=== PATIENT | male | born 1960 | race Caucasian/White ===

== ENCOUNTER 2024-06-29 12:31 | Outpatient (CLI) | payer OTHER, SELFPAY ==
[2024-06-29 13:11] LABS: Phenytoin Dilantin 5 ug/mL (10-20)
== END 2024-06-29 12:32 | disposition home or self-care (01) ==
PROVIDERS: Visit Provider Psychiatry & Neurology Neurology
DX: G40.909 Epilepsy, unspecified, not intractable, without status epilepticus (principal)
CPT/HCPCS: 36415; 80185

== ENCOUNTER 2025-03-28 13:31 | Outpatient (CLI) | payer OTHER, SELFPAY ==
--- OUTSIDE RECORDS SUMMARY | 2025-03-28 14:01 | XMS_ITS | Clinical Summary ---
Author Organization [facility] Address [address] [place] [address] Care Team Providers Care Glass Tube Bender Name Role Phone Drake RANDOLPH MD, Aric Morse Primary Care Provider Cirilo VALLE MD, Aric Morse Unavailable [phone] Source Comments [facility],non-owned Affiliates and Associated Physician Practices is amultiple site organization consisting of ambulatory clinics and hospital sitesin [place], [place], [place] and [place]. This disclosure is being madepursuant to the Care Everywhere program and may not contain all information available regarding this patient. Last updated 18.[facility] Allergies Active Allergy Reactions Criticality Noted Date Comments Cortisone Anaphylaxis High Reaction: Other Hydrocortisone Other Low 01/26/2016 Extremely drowsy Levofloxacin Unknown 01/11/2019 Medications * Be aware that medications may not be up to date on this document. Alwaysverify current medications with the patient. topiramate (TOPAMAX) 100 MG tablet Take 100 mg by mouth BID. 60 tablet 2 7 Active Additional Information Patient not taking.Reported on 04/14/2019 primidone (MYSOLINE) 50 MG tablet Take 50 mg by mouth BID. 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 Gender Identity Not on file Sexual Orientation Not on file Last Filed Vital Signs Vital Sign Reading Time Taken Comments Blood Pressure 184/94 04/14/2019 2:19 PM CDT Pulse 57 04/14/2019 2:19 PM CDT Temperature 36.1 C (96.9 F) 01/26/2016 10:17 AM CDT Respiratory Rate - - Oxygen Saturation 95% 04/14/2019 2:19 PM CDT Inhaled Oxygen Concentration - - Weight 168.3 kg (371 lb) 04/14/2019 2:19 PM CDT Height 172.7 cm (5' 8) 04/14/2019 2:19 PM CDT Body Mass Index 56.41 04/14/2019 2:19 PM CDT Plan of Treatment Health Maintenance Due Date Last Done Comments COLOGUARD (AGES 45-75) - COLON CA SCREENING 1958 COLON MONITORING 1958 COLONOSCOPY - COLON CA SCREENING 1958 CT COLONOGRAPHY - COLON CA SCREENING 1958 Colorectal Cancer Screening 1958 FIT - COLON CA SCREENING 1958 FLEX SIG - COLON CA SCREENING 1958 DTAP/TDAP/TD VACCINES (1 - Tdap) 1977 PNEUMOCOCCAL VACCINE 50+ (1 of 1 - PCV) 2008 ZOSTER VACCINE (1 of 2) 2008 Respiratory Syncytial Virus (RSV) Vaccine Pt: or over 60 yrs (1 - Risk 60-74 years 1-dose series) 2018 COVID-19 VACCINE (1 - 2023- season) 2024 DEPRESSION SCREENING 09/29/2024 INFLUENZA VACCINE (Season Ended) 2025 SCREENING FOR DIABETES 08/15/2026 , 08/15/2023, 08/15/2023, Additional history exists LIPID TESTING 08/15/2028 08/15/2023, 10/23/2021 HEPATITIS C SCREENING Completed 10/23/2021 HEPATITIS B VACCINE Aged Out No longe r eligible based on patient's age to complete this topic HIB VACCINE Aged Out No longer eligi ble based on patient's age to complete this topic HPV VACCINE Aged Out No longer eligi ble based on patient's age to complete this topic MENINGOCOCCAL (Group B) VACCINE SHARED DECISION-MAKING Aged Out No longer eligible based on patient's age to complete this topic MENINGOCOCCAL GROUPS A/C/Y/W VACCINE Aged Out No longer eligible based on patient's age to complete this topic Insurance [employer] Care Teams Glass Tube Bender Relationship Specialty Start Date End Date Aric Juan III, MD [address] [address] PCP - General 12/28/18 Aric Kerr II, MD [address] [place] [id number] PCP - Attributed-[facility] 09/29/24
--- OUTSIDE RECORDS SUMMARY | 2025-03-28 14:01 | XMS_ITS | Encounter Summary ---
Author Organization [facility] Healthcare Address [address] [place] [address] Care Team Providers Care Supervisor Assembly And Packing Name Role Phone Aric Juan MD Unavailable [phone] Aric Juan MD Primary Care Provider [phone] Encounter Details Date Type Department Care Team (Latest Contact Info) Description 01/01/2021 Ophth Exam Ophthalmology Arianne Millard MD PhD [address] [place] [address] Social History Tobacco Use Types Packs/Day Years Used Date Smoking Tobacco: Former Cigarettes Q uit: 01/12/1972 Smokeless Tobacco: Never Alcohol Use Standard Drinks/Week Comments Yes 0 (1 standard drink = 0.6 oz pur e alcohol) very occasionally AUDIT-C Answer Date Recorded Q1: How often do you have a drink containing alc ohol? Monthly or less 01/04/2021 Q2: How many drinks containi ng alcohol do you have on a typical day when you are drinking? 1 or 2 01/04/2021 Q3: How often do you have si x or more drinks on one occasion? 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 Gender Identity Not on file Sexual Orientation Not on file documented as of this encounter Functional Status documented as of this encounter Plan of Treatment Not on file documented as of this encounter Visit Diagnoses Not on filedocumented in this encounter Eye Exam Visual Acuity Right eye Left eye Near sc LP Near cc 20/20-2 Correction: Glasses Tonometry (Tonopen, 7:12 PM) Right eye Left eye Pressure def 16 Pupils Dark Light Shape React APD Right eye no view Left eye 2 1 Round Brisk None Visual Vivar Right eye Left eye Full Restrictions Total superior tempo ral, inferior temporal, superior nasal, inferior nasal deficiencies Extraocular Movement Right eye Left eye Full Full Neuro/Psych Oriented x3: Yes Mood/Affect: Normal Dilation Left eye: 1% Tropicamide, 2. 5% Phenylephrine @ 7:12 PM External Exam Right eye Left eye External Periorbital ecchymosis, trace ed maria elena; tender to palpation Normal Slit Lamp Exam Right eye Left eye Lids/Lashes Upper and lower lid edema and ecchymosis, ptosis Normal Conjunctiva/Sclera 360 conj injection White and quiet Cornea Large extruded clott ed blood material from superior aspect (through possible limbal or scleral laceration) protruding outward, appears to contain uveal tissue. Underneath material appears to be folded over cornea Clear Anterior Chamber no view Deep and quiet Iris Round and reacti ve Lens +NS Vitreous Normal Fundus Exam Right eye Left eye Disc no view 360 crisp margin s, no pallor or heme; PPA temporally C/D Ratio 0.1 Macula Normal flat michelle ched Vessels Normal c/c Periphery small possible n evus <1dd near the superior arcade which is not raised and not associated with fluid or pigment/exudates. Peripherally with one drusen inferiorly, otherwise no tears, detachments, or heme noted Care Teams Supervisor Assembly And Packing Relationship Specialty Start Date End Date Aric Juan MD PCP - General Family Medicine 12/24/19 Aric Juan MD Consulting Physician Family Medicine 12/24/19 documented as of this encounter
--- OUTSIDE RECORDS SUMMARY | 2025-03-28 14:01 | XMS_ITS | Encounter Summary ---
Author Organization [facility] Facility Care Team Providers Care Textile Pin Worker Name Role Phone Aric Juan MD Primary Care Provider [phone] Patric Espino MD Primary Care Provider Aric Juan MD Unavailable [phone] Aric Juan MD Primary Care Provider [phone] Aric Juan MD Primary Care Provider [phone] Encounter Details Date Type Department Care Team (Latest Contact Info) Description 07/10/2016 Orders Only [facility] CLINCONV ProviderPaulie MD [address] [place] [address] Social History Tobacco Use Types Packs/Day Years Used Date Smoking Tobacco: Never Assessed Sex and Gender Information Value Date Recorded Sex Assigned at Not on file 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 us Historical Provider NURSING COMMUNICATION Fin al Result documented in this encounter Visit Diagnoses Not on filedocumented in this encounter Care Teams Textile Pin Worker Relationship Specialty Start Date End Date Aric Juan MD PCP - General Family Medicine 02/27/18 11/28/19 Patric Espino MD [address] [address] PCP - General 11/29/19 12/13/19 Aric Juan MD PCP - General Family Medicine 12/24/19 Aric Juan MD PCP - General 12/14/19 12/23/19 Aric Juan MD Consulting Physician Family Medicine 12/24/19 documented as of this encounter
--- OUTSIDE RECORDS SUMMARY | 2025-03-28 14:01 | XMS_ITS | Referral Summary ---
Author Organization [facility] Address [address] [place] [address] Care Team Providers Care Blister Packaging Machine Operator Name Role Phone Aric Juan MD Unavailable [phone] Aric Juan MD Primary Care Provider [phone] Allergies Active Allergy Reactions Criticality Noted Date Comments Cortisone Other (See comments),Anaphylaxis High 12/29/2020 Reaction: Other Reaction: Other Other reaction(s): tires him, no rash Levofloxacin Unknown 01/11/2019 Morphine Agitation Low 12/29/2020 Medications urea (CARMOL) 40 % cream 1 application daily Both feet 3 11/26/19 19 Active albuterol HFA (VENTOLIN HFA) 90 mcg/actuation inhalerIndications :Bronchitis Inhale 2 puffs every 4 (four) hours as needed for wheezing or shortness of breath 8 g 5 01/12/20 19 Active potassium chloride ER (Klor-Con 10) 10 mEq CR tabletIndications: Essential hypertension Take 1 tablet/capsule (10 mEq total) by mouth daily 30 tablet 6 02/02/20 20 Active acetaminophen (TYLENOL) 325 mg tabletIndications: Pain Take 2 tablets (650 mg total) by mouth every 4 (four) hours as needed for pain 01/04/20 21 Active docusate sodium (COLACE) 100 mg capsuleIndications :constipation Take 1 capsule (100 mg total) by mouth 2 (two) times a day as needed for constipation 01/04/20 21 Active Additional Information Patient not taking.Reported on 05/08/2021 ondansetron ODT (ZOFRAN-ODT) 4 mg disintegrating tabletIndications: Nausea and Vomiting Take 1 tablet (4 mg total) by mouth every 12 (twelve) hours as needed for nausea or vomiting 6 tablet 01/04/20 Active Additional Information Patient not taking.Reported on 05/08/2021 erythromycin (ILOTYCIN) ophthalmic ointment Apply to right eye 3 (three) times a day where the upper and lower eyelids meet 3.5 g 3 01/04/20 Active Additional Information Patient not taking.Reported on 05/08/2021 timolol (TIMOPTIC) 0.5 % ophthalmic solution INSTILL 1 DROP IN RIGHT EYE TWICE DAILY 12/31/19 Active dorzolamide (TRUSOPT) 2 % ophthalmic solution INSTILL 1 DROP IN RIGHT EYE TWICE DAILY 12/31/19 21 Active levETIRAcetam (KEPPRA) 1,000 mg tablet Take 1 tablet (1,000 mg total) by mouth 2 (two) times a day 180 tablet 3 03/26/20 Active Additional Information Patient not taking.Reported on 05/08/2021 cetirizine (ZyrTEC) 10 mg tabletIndications: Dysfunction of left eustachian tube Take 1 tablet (10 mg total) by mouth daily 30 tablet 3 04/17/20 21 Active furosemide (LASIX) 20 mg tabletIndications: Essential hypertension TAKE ONE-HALF TABLET BY MOUTH EVERY DAY 15 tablet 6 05/08/20 21 Active OXcarbazepine (TRILEPTAL) 300 mg tabletIndications: Seizure disorder (HCC) Take 1 tablet (300 mg total) by mouth 2 (two) times a day 180 tablet 3 07/11/20 21 Active phenytoin ER (DILANTIN) 100 mg ER capsuleIndications :Seizure disorder (HCC) Take 1 capsule (100 mg total) by mouth 2 (two) times a day 180 capsule 3 07/11/20 21 Active primidone (MYSOLINE) 50 mg tablet Take 2 tablets (100 mg total) by mouth nightly 180 tablet 3 07/11/20 21 Active propranoloL (INDERAL) 40 mg tablet TAKE 1 TABLET(40 MG) BY MOUTH THREE TIMES DAILY 270 tablet 05/13/20 22 Active Active Problems Problem Noted Date Diagnosed Date S/p right eye enucleation, hx of ruptured globe 12/29/2020 Overview (01/17/2021): RGR OD 12/30/20, fell at home POD#2 with catastrophic re-rupture and uveal extrusion S/p enucleation 01/02/21 Assessment & Plan (01/19/2021 4:58 PM CDT): Doing well, conformer in place. Discussed timeline for postoperative healing with recommendation to see M&G, ideally in the next 3-5 weeks. He knows to contact us for increased redness, discharge, pain, or conformer issues. Discussed monocular precautions at length. We believe his current glasses (issued by outside practice in 11/2020) are made of glass. Emphasized that he should contact the fabricator to request remake in polycarbonate, with OTC safety glasses/goggles in the interim. He verbalizes understanding. Assessment & Plan (12/30/2020 9:22 AM CDT): POD1 Repair Ruptured Globe - Right Postoperative instructions were given. The patient is to use: Polytrim QID OD X 1 week (allergic to fluoroquinolones) Prednisolone Acetate 1% QID OD Atropine TID OD Doxycycline 100mg BID PO x 10 days Start Cosopt BID OD Given tobradex ointment to use QID OD until he is able to fill the above medications. Patient is to wear the shield at bedtime X 1 week. Signs, symptoms of retinal detachment, tear, hole, and endophthalmitis were reviewed and the patient is to call immediately for concerns. We discussed that things should improve until they stabilize. Should there be any worsening of pain, vision, or redness the patient is to call. Followup 1 week or sooner prn issues. For other eye, monocular precautions discussed. Will need MRx for polycarbs S/P left knee arthroscopy 08/30/2020 Partial epilepsy with impair ment of consciousness, intractable 04/26/2020 Migraine without aura and wi thout status migrainosus, not intractable 04/26/2020 High risk medications (not anticoagulants) long- term use 09/23/2019 Assessment & Plan (09/23/2019 1:44 PM MANAGER AUDIT): Order cbc, cmp and phenytoin and oxcarbazepine level today to evaluate high risk medications Spells of decreased attentiveness 06/11/2018 Seizure disorder 08/04/2017 Assessment & Plan (09/23/2019 1:46 PM MANAGER AUDIT): Well controlled on current regimen, no rx changes needed. Continue lifestyle modifications Peripheral neuropathy 02/29/2016 Narcolepsy 01/31/2016 Osteoarthritis of knees, bilateral 01/31/2016 Assessment & Plan (09/23/2019 1:51 PM MANAGER AUDIT): Start Tyle # 3 tid prn # 45 Order mri knee left. Open mri Failed nsaids, progressive after fail. Instability of knee, failed gel injections and cortisone inj Order knee brace , offoading Obstructive sleep apnea syndrome 04/08/2012 Morbid obesity 04/08/2012 Chronic pain 04/08/2012 Overview (01/09/2018): Description: back and both knees Hypertension 04/08/2012 Resolved Problems Problem Noted Date Diagnosed Date Resolved Date HTN (hypertension) 01/31/2016 9 JANE (obstructive sleep apnea) 01/31/2016 01/11/2019 Immunizations Immunization Administration Dates Next Due Influenza, Unspecified 09/05/2021(Deferred: Isabel ent Refused) Tdap 12/29/2020 Social History Tobacco Use Types Packs/Day Years Used Date Smoking Tobacco: Former Cigarettes Q uit: 01/12/1972 Smokeless Tobacco: Never Alcohol Use Standard Drinks/Week Comments Yes 0 (1 standard drink = 0.6 oz pur e alcohol) very occasionally AUDIT-C Answer Date Recorded Q1: How often do you have a drink containing alc ohol? Monthly or less 09/05/2021 Q2: How many drinks containi ng alcohol do you have on a typical day when you are drinking? 1 or 2 09/05/2021 Q3: How often do you have si x or more drinks on one occasion? Never 09/05/2021 PHQ-2 Answer Date Recorded PHQ-2 Total Score (If total score is 3 or more points, staff should administer the PHQ-9) 0 02/01/2021 Sex and Gender Information Value Date Recorded Sex Assigned at Not on file Legal Sex Male 9:50 AM MANAGER AUDIT Gender Identity Not on file Sexual Orientation Not on file Last Filed Vital Signs Vital Sign Reading Time Taken Comments Blood Pressure 104/60 09/05/2021 1:33 PM MANAGER AUDIT Pulse 90 09/05/2021 1:33 PM MANAGER AUDIT Temperature 37.1 C (98.8 F) 09/05/2021 1:33 PM MANAGER AUDIT Respiratory Rate 17 09/05/2021 1:33 PM MANAGER AUDIT Oxygen Saturation 96% 09/05/2021 1:33 PM MANAGER AUDIT Inhaled Oxygen Concentration - - Weight 161.1 kg (355 lb 3.2 oz) 09/05/2021 1:33 PM MANAGER AUDIT Height 175.3 cm (5' 9.02) 09/05/2021 1:33 PM CS T Body Mass Index 52.42 09/05/2021 1:33 PM MANAGER AUDIT Plan of Treatment Not on file Medical Devices Implanted Type Area Drug Coordinator Device Identifier Shelf Expiration Date Model / Serial / Lot Graft Sft Tis Sclr l - [id number] - [id number] Implanted:Qty: 1 on 01/02/2021 by David Jarrett MD at [facility] Right: Eye Mid Tigist Transplant Srvcs 10/16/2021 WHOLE / [id number] / [id number] [employer] [id number] Annie 20mm 20mm Hard Lightweight Inert Virtually Unbreakable - [id number] Implanted:Qty: 1 on 01/02/2021 by David Jarrett MD at [facility] Right: Eye [employer] [id number] 04/04/2021 [id number] / / [id number] Insurance [employer] Address: [address] [place] [address] [place] [address] MEDICARE MEDICA MEDICARE Advance Directives For more information, please contact: [phone] * Full Code (Latest Code Status on File) Date Activated Date Inactivated Comments 01/02/2021 4:24 PM 01/03/2021 5:33 PM * Full Code Date Activated Date Inactivated Comments 01/02/2021 1:11 AM 01/02/2021 4:24 PM Care Teams Blister Packaging Machine Operator Relationship Specialty Start Date End Date Aric Juan MD PCP - General Family Medicine 12/24/19 Aric Juan MD Consulting Physician Family Medicine 12/24/19
--- OUTSIDE RECORDS SUMMARY | 2025-03-28 14:01 | XMS_ITS | Clinical Summary ---
Author Organization [facility] [address] Address [address] [place] [address] Care Team Providers Care Orange Peel Operator Name Role Phone Aric Juan MD Unavailable [phone] Aric Juan MD Primary Care Provider [phone] Allergies Active Allergy Reactions Criticality Noted Date [...] 09/23/2019 Assessment & Plan (09/23/2019 1:44 PM POWDER OPERATOR): Order cbc, cmp and phenytoin and oxcarbazepine level today to evaluate high risk medications Spells of decreased attentiveness 06/11/2018 Seizure disorder 08/04/2017 Assessment & Plan (09/23/2019 1:46 PM POWDER OPERATOR): Well controlled on current regimen, no rx changes needed. Continue lifestyle modifications Peripheral neuropathy 02/29/2016 Narcolepsy 01/31/2016 Osteoarthritis of knees, bilateral 01/31/2016 Assessment & Plan (09/23/2019 1:51 PM POWDER OPERATOR): Start Tyle # 3 tid prn # [...] Unspecified 09/05/2021(Deferred: Isabel ent Refused) Tdap 12/29/2020 Surgical History Surgery Date Site/Laterality Comments APPENDECTOMY Appendectomy - (Added by TW Conv) PILONIDAL CYST RESECTION Pilonidal Cyst Resection - (Added by TW Conv) RUPTURED GLOBE EXPLORATION A ND REPAIR 12/29/2020 HERNIA REPAIR Hernia Repair - (Added by TW Conv) EYE SURGERY Right removed Medical History Medical History Date Comments Hypertension JANE (obstructive sleep apnea) Seizures (HCC) HL (hearing loss) bilat ears Family History Medical History Relation Name Comments No Known Problems Brother No Known Problems Father Leukemia Father's Sister Hypertension Maternal Grandfather Hypertension Maternal Grandmother No Known Problems Mother Cancer Paternal Grandfather Cancer Paternal Grandmother No Known Problems Sister Relation Name Status Comments Brother Alive Father Alive Father's Sister Maternal Grandfather Maternal Grandmother Mother Paternal Grandfather Paternal Grandmother Sister Alive Social History Tobacco Use Types Packs/Day Years [...] on file Legal Sex Male 9:50 AM POWDER OPERATOR Gender Identity Not on file Sexual Orientation Not on file Obstetrics History Last Filed Vital Signs Vital Sign Reading Time Taken Comments Blood Pressure 104/60 09/05/2021 1:33 PM POWDER OPERATOR Pulse 90 09/05/2021 1:33 PM POWDER OPERATOR Temperature 37.1 C (98.8 F) 09/05/2021 1:33 PM POWDER OPERATOR Respiratory Rate 17 09/05/2021 1:33 PM POWDER OPERATOR Oxygen Saturation 96% 09/05/2021 1:33 PM POWDER OPERATOR Inhaled Oxygen Concentration - - Weight 161.1 kg (355 lb 3.2 oz) 09/05/2021 1:33 PM POWDER OPERATOR Height 175.3 cm (5' 9.02) 09/05/2021 1:33 PM CS T Body Mass Index 52.42 09/05/2021 1:33 PM POWDER OPERATOR Plan of Treatment Not on file Medical Devices Implanted Type Area Mussel Farmer Device Identifier Shelf Expiration Date Model / Serial / Lot Graft Sft Tis Sclr [facility] - [id number] - [id number] Implanted:Qty: 1 on 01/02/2021 by David Jarrett MD at [facility] Right: Eye Mid Tigist Transplant Srvcs 10/16/2021 WHOLE / [id number] / [id number] [employer] [id number] Hawi 20mm 20mm Hard Lightweight Inert Virtually Unbreakable - [id number] Implanted:Qty: 1 on 01/02/2021 by David Jarrett MD at [facility] Right: Eye [employer] [id number] 04/04/2021 [id number] / / [id number] Insurance [facility] [employer] Address: [facility] [id number] [place] [address] [facility] MEDICARE [facility] Address: [address] [address] [place] [address] MEDICA MEDICARE Advance Directives For more information, please contact: [phone] * Full Code (Latest Code Status on File) Date Activated Date Inactivated Comments 01/02/2021 4:24 PM 01/03/2021 5:33 PM * Full Code Date Activated Date Inactivated Comments 01/02/2021 1:11 AM 01/02/2021 4:24 PM Care Teams Orange Peel Operator Relationship Specialty Start Date End Date Aric Juan MD PCP - General Family Medicine 12/24/19 Aric Juan MD Consulting Physician Family Medicine 12/24/19
--- OUTSIDE RECORDS SUMMARY | 2025-03-28 14:01 | XMS_ITS | Encounter Summary ---
Author Organization [facility] Facility Care Team Providers Care Real Estate Portfolio Manager Name Role Phone Aric Juan MD Primary Care Provider [phone] Patric Espino MD Primary Care Provider Aric Juan MD Unavailable [phone] Aric Juan MD Primary Care Provider [phone] Aric Juan MD Primary Care Provider [phone] Encounter Details Date Type Department Care Team (Latest Contact Info) Description 07/02/2016 Orders Only [facility] CLINCONV ProviderPaulie MD [address] [place] [address] Social History Tobacco Use Types Packs/Day Years Used Date Smoking Tobacco: Never Assessed Sex and Gender Information Value Date Recorded Sex Assigned at Not on file Legal Sex Male 9:50 AM COPY HOLDER Gender Identity Not on file Sexual Orientation Not on file documented as of this encounter Plan of Treatment Not on file documented as of this encounter Procedures Procedure Name Priority Date/Time Associated Diagnosis Comments CARDIOLOGY REPORT 07/03/2016 12: 00 AM CDT documented in this encounter Results * CARDIOLOGY REPORT (07/03/2016 12:00 AM CDT) Anatomical Region Laterality Modality Other Narrative 07/03/2016 12:00 AM CDT Ordered by an unspecified provider. us Historical Provider [facility] Final Result documented in this encounter Visit Diagnoses Not on filedocumented in this encounter Care Teams Real Estate Portfolio Manager Relationship Specialty Start Date End Date Aric Juan MD PCP - General Family Medicine 02/27/18 11/28/19 Patric Espino MD [address] [facility] [place] [address] PCP - General 11/29/19 12/13/19 Aric Juan MD PCP - General Family Medicine 12/24/19 Aric Juan MD PCP - General 12/14/19 12/23/19 Aric Juan MD Consulting Physician Family Medicine 12/24/19 documented as of this encounter
--- OUTSIDE RECORDS SUMMARY | 2025-03-28 14:01 | XMS_ITS | Encounter Summary ---
Author Organization [facility] Address [facility] [place] [address] Care Team Providers Care President [employer] Name Role Phone Cirilo VALLE MD, Aric Morse Primary Care Provider Encounter Details Date Type Department Care Team (Late st Contact Info) Description 03/12/2025 Results Follow-Up [facility] Family Medicine - [address] [address] Aric Kerr II, MD [address] [place] [id number] COMPREHENSIVE METABOLIC PANEL, LIPID PANEL, PHENYTOIN, HEMOGLOBIN, GLYCOSYLATED Social History Tobacco Use Types Packs/Day Years Used Date Smoking Tobacco: Former Smokeless Tobacco: Never Comments:Quit 40 years ago Alcohol Use Standard Drinks/Week Comments Yes 0 (1 standard drink = 0.6 oz pur e alcohol) Occasionally Humiliation, Afraid, Rape, and Kick questionnair e Answer Date Recorded Within the last year, have y ou been afraid of your partner or ex-partner? No 04/27/2022 Within the last year, have y ou been humiliated or emotionally abused in other ways by your partner or ex-partner? No Within the last year, have y ou been kicked, hit, slapped, or otherwise physically hurt by your partner or ex-partner? No 04/27/2022 Within the last year, have y ou been raped or forced to have any kind of sexual activity by your partner or ex-partner? No 04/27/2022 Social Connection and Isolation Panel [NHANES] A nswer Date Recorded In a typical week, how many times do you talk on the phone with family, friends, or neighbors? Once a week 04/27/2022 How often do you get together with friends or re latives? Once a week 04/27/2022 How often do you attend oriental orthodox or rastafarian serv ices? Never 04/27/2022 Do you belong to any clubs o r organizations such as oriental orthodox groups, unions, fraternal or athletic groups, or school groups? No 04/27/2022 How often do you attend meet ings of the clubs or organizations you belong to? Never 04/27/2022 Are you , , di vorced, , never , or living with a partner? 04/27/2022 AUDIT-C Answer Date Recorded Q1: How often do you have a drink containing alcohol? Monthly or less 04/27/2022 Q2: How many drinks containi ng alcohol do you have on a typical day when you are drinking? Patient does not drink Q3: How often do you have si x or more drinks on one occasion? Never 04/27/2022 Overall Financial Resource Strain (CARDIA) Answe r Date Recorded How hard is it for you to pa y for the very basics like food, housing, medical care, and heating? Not hard at all 04/27/2022 PHQ-2 Answer Date Recorded Patient Health Questionnaire-2 Score 0 11/09/2024 [facility] - Occupational Stress Questionnaire Answer Date Recorded Do you feel stress - tense, restless, nervous, or anxious, or unable to sleep at night because your mind is troubled all the time - these days? Not at all 04/27/2022 Exercise Vital Sign Answer Date Recorde d On average, how many days pe r week do you engage in moderate to strenuous exercise (like a brisk walk)? 0 days 04/27/2022 On average, how many minutes do you engage in exercise at this level? 0 min 04/27/2022 Hunger Vital Sign Answer Date Recorded Within the past 12 months, y ou worried that your food would run out before you got the money to buy more. Never true 04/27/20 22 Within the past 12 months, t he food you bought just didn't last and you didn't have money to get more. Never true 04/27/2022 PRAPARE - Transportation Answer Date Re corded In the past 12 months, has l ack of transportation kept you from medical appointments or from getting medications? No 03/31 In the past 12 months, has l ack of transportation kept you from meetings, work, or from getting things needed for daily living? No 04/27/2022 Housing Stability Vital Sign Answer Juan Carlos e Recorded In the last 12 months, was t here a time when you were not able to pay the mortgage or rent on time? No 04/27/2022 Number of Places Lived in the Last Year Not on f ile 04/27/2022 In the last 12 months, was t here a time when you did not have a steady place to sleep or slept in a fci (including now)? No 04/27/2022 Sex and Gender Information Value Date Recorded Sex Assigned at Male 10/21/2024 4:38 PM [employer] Legal Sex Male 9:41 PM CDT Gender Identity Not on file Sexual Orientation Not on file documented as of this encounter Functional Status * RETIRED Are you deaf or do you have serious difficulty hearing Answer Date of Assessment Author Status No 04/27/2022 11:52 PM CDT Acti ve * RETIRED Are you blind or do you have serious difficulty seeing, even when wearing glasses? Answer Date of Assessment Author Status No 04/27/2022 11:52 PM CDT Acti ve * Do you have serious difficulty walking or climbing stairs? Answer Date of Assessment Author Status Yes 04/27/2022 11:52 PM CDT Sarah Titus RN Active * Do you have difficulty dressing or bathing? Answer Date of Assessment Author Status Yes 04/27/2022 11:52 PM CDT Sarah Titus RN Active * Because of a physical, mental, or emotional condition, do you have difficulty doing errands alone such as visiting a doctor's office or shopping? Answer Date of Assessment Author Status Yes 04/27/2022 11:52 PM CDT Sarah Titus RN Active documented as of this encounter Mental Status * Because of a physical, mental, or emotional condition, do you have serious difficulty concentrating, remembering, or making decisions? Answer Entry Date Author Status No 04/27/2022 11:52 PM CDT Sarah Titus, RN Active documented in this encounter Progress Notes * Aric Kerr II, MD - 03/12/2025 11:41 AM CDT Lab results reviewed. Minor abnormalities noted. Will review with patient at upcoming appointment and make adjustments if needed. documented in this encounter Plan of Treatment Upcoming Encounters Date Type Department Care Team (Late st Contact Info) Description 06/21/2025 3:00 PM CDT Office Visit [facility] Family Medicine - [place] [address] [place] [phone] Aric Kerr II, MD [address] [place] [address] documented as of this encounter Visit Diagnoses Not on filedocumented in this encounter Additional Health Concerns Assessment Noted Time PHQ-9 Depression Total Score: 0 11/09/19 25 8:37 AM [employer] documented as of this encounter Care Teams President [employer] Relationship Specialty Start Date End Date Aric Kerr II, MD [address] [facility] [address] [place] [address] [phone] PCP - General FAMILY PRACTICE 12/18/22 documented as of this encounter
--- OUTSIDE RECORDS SUMMARY | 2025-03-28 14:01 | XMS_ITS | Encounter Summary ---
Author Organization [facility] Address [address] [facility] [address] [place] [address] Phone Care Team Providers Care Nursing Service Administrator Name Role Phone Aric Juan MD Unavailable [phone] Aric Juan MD Primary Care Provider [phone] Encounter Details Date Type Department Care Team (Late st Contact Info) Description 01/03/2021 Ophth Exam [facility] Ophthalmology [address] [facility] 1[address] [place] [phone] Isidoro Wang MD [address] [facility] [address] [place] [address] Social History Tobacco Use Types Packs/Day Years [...] on file 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 Gender Identity Not on file Sexual Orientation Not on file documented as of this encounter Functional Status documented as of this encounter Plan of Treatment Not on file documented as of this encounter Visit Diagnoses Not on filedocumented in this encounter Eye Exam Visual Acuity Right eye Left eye Near cc 20/25- PH 20/20 Tonometry (Palpation, 8:42 AM) Right eye Left eye Pressure STP Pupils Dark Light Shape React Right eye Left eye 5 3 Round Brisk Extraocular Movement Right eye Left eye Up gaze -- -- -- 0 0 0 Right/left gaze -- -- -- 0 -- 0 Down gaze -- -- -- 0 0 0 Neuro/Psych Oriented x3: Yes Mood/Affect: Normal External Exam Right eye Left eye External Periorbital ecchymosis, trace ed maria elena; tender to palpation Normal Slit Lamp Exam Right eye Left eye Lids/Lashes Upper and lower lid edema and ecchymosis as above; lateral and medial tarsorhaphies in place Normal Conjunctiva/Sclera conformer in place White and quiet Cornea Clear Anterior Chamber Deep and quiet Iris Round and reacti ve Lens +NS Vitreous Normal Care Teams Nursing Service Administrator Relationship Specialty Start Date End Date Aric Juan MD PCP - General Family Medicine 12/24/19 Aric Juan MD Consulting Physician Family Medicine 12/24/19 documented as of this encounter
--- OUTSIDE RECORDS SUMMARY | 2025-03-28 14:01 | XMS_ITS | Clinical Summary ---
Author Organization [facility] Address Formerly [facility] [place] [address] Care Team Providers Care Heel Sprayer Name Role Phone Cirilo VALLE MD, Aric Morse Primary Care Provider Allergies Active Allergy Reactions Criticality Noted Date Comments Cortisone Anaphylaxis,Other (s ee comment) High Reaction: Other Reaction: Other Reaction: Other Levofloxacin Unknown 01/11/2019 Morphine Anxiety Low 12/29/2020 Medications Lancets MiscIndications :Type 2 diabetes mellitus without complication, without long-term current use of insulin ([facility]) 1 each by Does not apply route 2 (two) times a day. 200 each 3 01/24/20 22 Active Glucose Blood (ONETOUCH VERIO) test stripIndication s:Type 2 diabetes mellitus without complication, without long-term current use of insulin ([facility]) 1 strip by Other route 2 (two) times a day. 200 strip 3 01/24/20 22 Active cetirizine (ZYRTEC ALLERGY) 10 MG tabletIndicatio ns:Type 2 diabetes mellitus without complication, without long-term current use of insulin ([facility]) Take 1 tablet (10 mg total) by mouth daily. 30 tablet 1 08/27/20 22 Active glimepiride (AMARYL) 4 MG tabletIndicatio ns:Type 2 diabetes mellitus with diabetic peripheral angiopathy without gangrene, without long-term current use of insulin ([facility]) Take 1 tablet (4 mg total) by mouth every morning before breakfast. 90 tablet 3 11/14/19 23 Active hydrocortisone 2.5 % creamIndication s:Hemorrhoids, unspecified hemorrhoid type Apply as directed once a day. 28 g 5 07/08/20 23 Active SUMAtriptan (IMITREX) 50 MG tabletIndicatio ns:Chronic migraine w/o aura w/o status migrainosus, not intractable Take 2 tablets (100 mg total) by mouth 2 (two) times daily as needed for Migraine. Max of 2 tablets in 24 hours. 10 tablet 5 12/22/19 24 Active empagliflozin (JARDIANCE) 25 MG tabletIndicatio ns:Type 2 diabetes mellitus with diabetic peripheral angiopathy without gangrene, without long-term current use of insulin ([facility]) Take 1 tablet (25 mg total) by mouth daily. 90 tablet 3 01/14/20 24 Active primidone (MYSOLINE) 50 MG tabletIndicatio ns:Intractable epilepsy without status epilepticus, unspecified epilepsy type ([facility]) Take 2 tablets (100 mg total) by mouth nightly at bedtime. 60 tablet 11 01/15/20 24 Active naloxone (NARCAN) 4 MG/0.1ML nasal sprayIndication s:High risk medication use 1 spray by Nasal route as needed for Opioid reversal. may repeat every 2 to 3 minutes in alternating nostrils until medical assistance becomes available 1 each 05/24/20 24 2024 Active Additional Information Patient not taking.Reported on 03/17/2025 OXcarbazepine (TRILEPTAL) 300 MG tablet Take 1 tablet (300 mg total) by mouth 2 (two) times daily. 06/10/20 24 Active phenytoin ER (DILANTIN KAPSEALS) 100 MG capsule Take 1 capsule (100 mg total) by mouth daily. 07/04/20 24 Active rosuvastatin (CRESTOR) 10 MG tabletIndicatio ns:Dyslipidemia Take 1 tablet (10 mg total) by mouth nightly at bedtime. 90 tablet 3 11/30/19 25 Active HYDROcodone-ada taminophen (NORCO) 7.5-325 MG tabletIndicatio ns:Chronic Pain Take 1 tablet by mouth every 6 (six) hours as needed for Pain. Indications: Chronic Pain 120 tablet 02/02/20 25 Active propranolol (INDERAL) 40 MG tabletIndicatio ns:Primary hypertension Take 1 tablet by mouth twice daily 180 tablet 02/23/20 25 Active MOTORIZED SCOOTER, DME,Indications :Mobility impaired Use daily as directed for mobility. 1 Device 03/16/20 25 Active metFORMIN ER (GLUCOPHAGE-XR) 500 MG 24 hr tabletIndicatio ns:Type 2 diabetes mellitus with diabetic peripheral angiopathy without gangrene, without long-term current use of insulin ([facility]) Take 1 tablet by mouth twice daily 180 tablet 3 03/22/20 25 Active metFORMIN ER (GLUCOPHAGE-XR) 500 MG 24 hr tabletIndicatio ns:Type 2 diabetes mellitus with diabetic peripheral angiopathy without gangrene, without long-term current use of insulin ([facility]) Take 1 tablet by mouth twice daily 180 tablet 3 02/24/20 24 2024 Discontinued MOTORIZED SCOOTER, DME,Indications :Mobility impaired Use daily as directed for mobility. 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 Discussed timeline [...] glasses/goggles in the interim. He verbalizes understanding. S/P left knee arthroscopy 08/30/2020 Migraine without aura and wi thout status migrainosus, not intractable 04/26/2020 Partial epilepsy with impair ment of consciousness, intractable ([facility]) 04/26/2020 High risk medications (not anticoagulants) long- term use 09/23/2019 Overview (11/20/2021): Last Assessment & Plan: Order cbc, cmp and phenytoin and oxcarbazepine level today to evaluate high risk medications Spells of decreased attentiveness 06/11/2018 Seizure disorder ([facility]) 08/04/2017 Overview (11/20/2021): Last Assessment & Plan: Well controlled on current regimen, no rx changes needed. Continue lifestyle modifications Peripheral neuropathy 02/29/2016 Narcolepsy ([facility]) 01/31/2016 Osteoarthritis of knees, bilateral 01/31/2016 Overview (11/20/2021): Last Assessment & Plan: Start Tyle # 3 tid prn # 45 Order mri knee left. Open mri Failed nsaids, progressive after fail. Instability of knee, failed gel injections and cortisone inj Order knee brace , offoading Chronic pain 04/08/2012 Overview (11/20/2021): Description: back and both knees Hypertension 04/08/2012 Class 3 severe obesity due t o excess calories with serious comorbidity and body mass index (BMI) of 40.0 to 44.9 in adult 04/08/2012 Obstructive sleep apnea syndrome 04/08/2012 Resolved Problems Problem Noted Date Diagnosed Date Resolved Date Type 2 diabetes mellitus wit hout complication, without long-term current use of insulin ([facility]) 12/28/2021 12/18/2022 Encounters Date Type Department Care Team Description 03/17/2025 1:20 PM CDT Office Visit [facility] Family Medicine - [place] [place] [address] Aric Kerr II, MD Lab Results (Patient presents to follow up on lab results) 03/17/2025 Travel 03/15/2025 Orders Only [address] [phone] Jane Corral MA 03/12/2025 8:30 AM CDT - 03/12/2025 11:59 PM CDT Hospital Encounter [facility] [place] [address] Aric Kerr II, MD Discharge Disposition: Home or Self Care (Routine Discharge) 03/12/2025 Results Follow-Up [address] [address] Aric Kerr II, MD COMPREHENSIVE METABOLIC PANEL, LIPID PANEL, PHENYTOIN, HEMOGLOBIN, GLYCOSYLATED 03/12/2025 Travel 03/11/[address] [address] Aric Kerr II, MD FYI (/) 02/25/2025 Scan [employer] HEALTH INFO SRVCS Scanned, [facility] 02/01/2025 3:00 PM CDT Office Visit [address] [phone] Aric Kerr II, MD Physical-Other (Patient presents for mobility visit/physical) 02/01/2025 Travel from Last 3 Months Immunizations Immunization Administration Dates Next Due Tdap (Boostrix) 10/21/2024 Tdap (Generic) 12/29/2020 Family History Medical History Relation Comments Diabetes Brother Diabetes Maternal Grandmother No Known Problems Mother Relation Status Comments Brother Father Alive Maternal Grandmother Mother Social History Tobacco Use Types Packs/Day Years Used Date Smoking Tobacco: Former Smokeless Tobacco: Never Tobacco Cessation:Counseling Given: No Comments:Quit 40 years ago Alcohol Use Standard [...] week 04/27/2022 How often do you attend caodaism or roman catholic serv ices? Never 04/27/2022 Do you belong to any clubs o r organizations such as caodaism groups, unions, fraternal or athletic groups, or [...] Recorded Patient Health Questionnaire-2 Score 0 11/09/2024 [facility] [place] [facility] Occup[facility] ional [facility] - Occupational Stress [...] place to sleep or slept in a senior care (including now)? 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 Legal Sex Male 9:41 PM CDT Gender Identity Not on file Sexual Orientation Not on file Last Filed Vital Signs Vital Sign Reading Time Taken Comments Blood Pressure 132/72 03/17/2025 2:58 PM CDT Pulse 62 03/17/2025 2:40 PM CDT Temperature 37.1 C (98.7 F) 03/17/2025 2:40 PM CDT Respiratory Rate 18 10/21/2024 7:56 PM BULL DRIVER Oxygen Saturation 95% 03/17/2025 2:40 PM CDT Inhaled Oxygen Concentration - - Weight 144.2 kg (318 lb) 03/17/2025 2:40 PM CDT Height 175.3 cm (5' 9) 10/21/2024 4:23 PM BULL DRIVER Body Mass Index 46.96 10/21/2024 4:23 PM BULL DRIVER Plan of Treatment Upcoming Encounters Date Type Department Care Team (Late st Contact Info) Description 06/21/2025 3:00 PM CDT Office Visit [facility] Family Medicine - [place] [address] [place] [phone] Aric Kerr II, MD [address] [place] [address] Health Maintenance Due Date Last Done Comments Colorectal Cancer Screening Colonoscopy (10 Years) 1958 Kidney Health Evaluation 1960 Pneumococcal Vaccine: 50+ Years (1 of 2 - PCV) 1977 Zoster Vaccines (1 of 2) 2008 RSV Immunization or 60+ Years (1 - Risk 60-74 years 1-dose series) 2018 AAA SCREENING 12/08/2023 08/27/2014, 08/27/2014 Annual Medicare Wellness Visit 12/08/2023 COVID-19 Vaccine ( - season) 2024 Diabetes: Retinopathy Eye Exam 01/14/2025 01/14/2023 Hemoglobin A1C 09/11/2025 03/12/2025, 10/30, 07/14/2024, Additional history exists Lipid Panel 03/12/2026 03/12/2025, 10/30, 07/14/2024, Additional history exists DTaP, Tdap and Td Vaccines (3 - Td or Tdap) 10/21/2034 10/21/2024, 12/29/2020 Hepatitis C Completed 10/23/2021 PHQ-2 (Physician Petros) Completed 11/09/2024 Meningococcal B Vaccine Aged Out No l onger eligible based on patient's age to complete this topic Meningococcal Vaccine Aged Out No hui stanley eligible based on patient's age to complete this topic RSV Immunizations Under 20 Months Aged Out No longer eligible based on patient's age to complete this topic Procedures Procedure Name Priority Date/Time Associated Diagnosis Comments HEMOGLOBIN, GLYCOSYLATED Routine 03/12/2025 8:37 AM CDT Type 2 diabetes mellitus with diabetic peripheral angiopathy without gangrene, without long-term current use of insulin ([facility]) PHENYTOIN Routine 03/12/2025 8:37 AM CDT Seizure ([facility]) LIPID PANEL Routine 03/12/2025 8:37 AM CDT Dyslipidemia COMPREHENSIVE METABOLIC PANEL Routine 03/12/2025 8:37 AM CDT Dyslipidemia DIABETIC RETINOPATHY EXAM (NEGATIVE)(SCAN ORDER) Routine 01/14/2023 HEPATITIS C ANTIBODY Routine 10/23/2021 3:03 PM BULL DRIVER Need for hepatitis C screening test from Last 3 Months or Most Recently Relevant to Health Maintenance Results * (ABNORMAL) HEMOGLOBIN, GLYCOSYLATED (03/12/2025 8:37 AM CDT) HGB A1C 7.5(H) <5.7 % 03/12/2025 11:09 AM CDT [facility] Comment: ADA GUIDELINES 2010 5.7 TO 6.4% INCREASED RISK OF DIABETES > OR = 6.5% CONSISTENT WITH DIABETES ESTIMATED AVG GLUCOSE 169 mg/dL 03/12/2025 11:09 AM CDT [facility] 03/12/2025 8:37 AM CDT Aric Kerr II, MD LABORATORY Final R esult [facility] [address] [place] [address], [place] [phone] * (ABNORMAL) COMPREHENSIVE METABOLIC PANEL (03/12/2025 8:37 AM CDT) [facility] GLUCOSE 148(H) 70 - 99 MG/DL 03/12/2025 9:16 AM CDT [facility] BUN 15 7 - 18 MG/DL 03/12/2025 9:16 AM CDT [facility] CREATININE S/P/B 0.89 0.7 - 1.3 MG/DL 03/12/2025 9:16 AM CDT [facility] SODIUM S/P/B 134(L) 136 - 145 MMOL/L 03/12/2025 9:16 AM CDT [facility] POTASSIUM S/P/B 4.4 3.5 - 5.1 MMOL/L 03/12/2025 9:16 AM CDT [facility] CHLORIDE S/P/B 102 97 - 115 MMOL/L 03/12/2025 9:16 AM CDT [facility] CO2 23.9 21 - 32 MMOL/L 03/12/2025 9:16 AM CDT [facility] CALCIUM S/P/B 8.8 8.5 - 10.1 MG/DL 03/12/2025 9:16 AM CDT [facility] BILIRUBIN TOTAL S/P/B 0.3 0.2 - 1.2 MG/DL 03/12/2025 9:16 AM CDT [facility] Comment: THIS ASSAY IS NOT RECOMMENDED FOR PATIENTS UNDERGOING TREATMENT WITH ELTROMBOPAG DUE TO THE POTENTIAL FOR FALSELY ELEVATED RESULTS. TOTAL PROTEIN S/P/B 7.6 6.4 - 8.2 G/DL 03/12/2025 9:16 AM CDT [facility] ALBUMIN S/P/B 3.3(L) 3.4 - 5.0 G/DL 03/12/2025 9:16 AM CDT [facility] AST 15 15 - 37 U/L 03/12/2025 9:16 AM CDT [facility] ALT 31 16 - 60 U/L 03/12/2025 9:16 AM CDT [facility] ALKALINE PHOSPHATASE S/P/B 116 50 - 136 U/L 03/12/2025 9:16 AM CDT [facility] ANION GAP 8.1 2 - 10 MMOL/L 03/12/2025 9:16 AM CDT [facility] BUN CREATININE RATIO 16.9 6 - 26 03/12/2025 9:16 AM CDT [facility] A/G RATIO 0.8(L) 1.0 - 2.0 RATIO 03/12/2025 9:16 AM CDT [facility] GFR ESTIMATE >90 >90 ML/MIN/1.7 3 M2 03/12/2025 9:16 AM CDT [facility] Comment: NOTE: eGFR is not calculated for patients <18 years of age or gender unknown. This is an estimated GFR calculation using the new CKD EPI creatinine equation without race and so does not require a correction factor for race. This estimated GFR should not be used for calculating drug doses. 03/12/2025 8:37 AM CDT Aric Kerr II, MD LABORATORY Final R esult [facility] [address] [place] [address], [place] [phone] * (ABNORMAL) LIPID PANEL (03/12/2025 8:37 AM CDT) CHOLESTEROL 227(H) <200 MG/DL 03/12/2025 9:16 AM CDT [facility] TRIGLYCERIDES 93 <150 MG/DL 03/12/2025 9:16 AM CDT [facility] HDL 73 >40.0 MG/DL 03/12/2025 9:16 AM CDT [facility] LDL (CALCULATED) 135(H) <100 MG/DL 03/12/2025 9:16 AM CDT [facility] Comment:CALCULATED USING THE FRIEDEWALD EQUATION NON HDL CHOLESTEROL 154(H) <130 MG/DL 03/12/2025 9:16 AM CDT [facility] CHOL/HDL RATIO 3.1 0.0 - 4.5 03/12/2025 9:16 AM CDT [facility] VLDL CALCULATION 19 5 - 55 MG/DL 03/12/2025 9:16 AM CDT [facility] LIPID INTERPRETATION 03/12/2025 9:16 AM CDT [facility] Comment: NIH CONCENSUS REPORT RECOMMENDATIONS: ADULT CHILD LOW RISK: CHOLESTEROL <200 <170 TRIGLYCERIDE <150 --- HDL >=60 --- LDL <100 <110 BORDERLINE: CHOLESTEROL 200-239 170-199 TRIGLYCERIDE 150-199 --- HDL 40-59 --- LDL 100-159 110-129 HIGH RISK: CHOLESTEROL >=240 >=200 TRIGLYCERIDE >=200 --- HDL <40 --- LDL >=160 >=130 03/12/2025 8:37 AM CDT Aric Kerr II, MD LABORATORY Final R esult [facility] [address] [place] [address], [place] [phone] * PHENYTOIN (03/12/2025 8:37 AM CDT) PHENYTOIN 14.4 10.0 - 20.0 MCG/ML 03/12/2025 9:16 AM CDT [facility] Comment: THERAPEUTIC: 10.0-20.0 TOXIC: >30.0 DOSE UNKNOWN LAST DOSE 03/12/2025 9:41 AM CDT [facility] 03/12/2025 8:37 AM CDT Aric Kerr II, MD LABORATORY Final R esult Performing Organization Address [facility] Co de Phone Number [facility] [address] [place] [address], * DIABETIC RETINOPATHY EXAM (NEGATIVE)(SCAN) (01/14/2023) [facility] Scanned SCANNING Final Resu lt Performing Organization Address [facility] Co de Phone Number [facility] * HEPATITIS C ANTIBODY (10/23/2021 3:03 PM BULL DRIVER) HEPATITIS C AB NON-REACTI VE NON-REACT GINI 10/24/2021 5:47 PM BULL DRIVER [facility] Comment: ANTIBODIES TO HCV NOT DETECTED. DOES NOT EXCLUDE THE POSSIBILITY OF EXPOSURE TO HCV. 10/23/2021 3:03 PM BULL DRIVER Mandy Velasquez MD LABORATORY Final Result Performing Organization Address [facility] Co de Phone Number [facility] [address] [place] [phone], [id number] from Last 3 Months or Most Recently Relevant to Health Maintenance Insurance [facility] Advance Directives * Full Code (Latest Code Status on File) Date Activated Date Inactivated Comments 04/27/2022 5:27 PM 04/28/2022 6:11 PM Care Teams Heel Sprayer Relationship Specialty Start Date End Date Aric Kerr II, MD [address] [facility] [address] [place] [address] PCP - General FAMILY PRACTICE 12/18/22
--- OUTSIDE RECORDS SUMMARY | 2025-03-28 14:01 | XMS_ITS | Encounter Summary ---
Author Organization [facility] Care Team Providers Care Funds Transfer Clerk Name Role Phone Aric Juan MD Primary Care Provider [phone] Patric Espino MD Primary Care Provider Aric Juan MD Unavailable [phone] Aric Juan MD Primary Care Provider [phone] Aric Juan MD Primary Care Provider [phone] Encounter Details Date Type Department Care Team (Latest Contact Info) Description 10/21/2015 Orders Only [facility] CLINCONV ProviderPaulie MD [address] [place] [address] Social History Tobacco Use Types Packs/Day Years Used Date Smoking Tobacco: Never Assessed Sex and Gender Information Value Date Recorded Sex Assigned at Not on file 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 Historical Provider Final Res ult documented in this encounter Visit Diagnoses Not on filedocumented in this encounter Care Teams Funds Transfer Clerk Relationship Specialty Start Date End Date Aric Juan MD PCP - General Family Medicine 02/27/18 11/28/19 Patric Espino MD [address] [place] [address] PCP - General 11/29/19 12/13/19 Aric Juan MD PCP - General Family Medicine 12/24/19 Aric Juan MD PCP - General 12/14/19 12/23/19 Aric Juan MD Consulting Physician Family Medicine 12/24/19 documented as of this encounter
--- OUTSIDE RECORDS SUMMARY | 2025-03-28 14:01 | XMS_ITS | Encounter Summary ---
Author Organization [facility] Care Team Providers Care Olive Picker Name Role Phone Aric Juan MD Primary Care Provider [phone] Patric Espino MD Primary Care Provider Aric Juan MD Unavailable [phone] Aric Juan MD Primary Care Provider [phone] Aric Juan MD Primary Care Provider [phone] Encounter Details Date Type Department Care Team (Latest Contact Info) Description 03/25/2016 Orders Only [facility] CLINCONV ProviderPaulie MD [address] [place] [address] Social History Tobacco Use Types Packs/Day Years Used Date Smoking Tobacco: Never Assessed Sex and Gender Information Value Date Recorded Sex Assigned at Not on file 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 Historical Provider [facility] Final Result documented in this encounter Visit Diagnoses Not on filedocumented in this encounter Care Teams Olive Picker Relationship Specialty Start Date End Date Aric Juan MD PCP - General Family Medicine 02/27/18 11/28/19 Patric Espino MD [address] [place] [address] PCP - General 11/29/19 12/13/19 Aric Juan MD PCP - General Family Medicine 12/24/19 Aric Juan MD PCP - General 12/14/19 12/23/19 Aric Juan MD Consulting Physician Family Medicine 12/24/19 documented as of this encounter
--- OUTSIDE RECORDS SUMMARY | 2025-03-28 14:01 | XMS_ITS | Encounter Summary ---
Author Organization [facility] Healthcare Address [address] [place] [address] Care Team Providers Care Dialysis Equipment Technician Name Role Phone Aric Juan MD Unavailable [phone] Aric Juan MD Primary Care Provider [phone] Encounter Details Date Type Department Care Team (Latest Contact Info) Description 12/29/2020 Ophth Exam Ophthalmology Isidoro Wang MD [address] [place] [address] [address] [place] [address] Social History Tobacco Use Types Packs/Day Years Used Date Smoking Tobacco: Former Cigarettes Q uit: 01/12/1972 Smokeless Tobacco: Never Alcohol Use Standard Drinks/Week Comments Yes 0 (1 standard drink = 0.6 oz pur e alcohol) very occasionally AUDIT-C Answer Date Recorded Q1: How often do you have a drink containing alc ohol? Never 12/29/2020 Average Number of Drinks Not on file 021 Q3: How often do you have si x or more drinks on one occasion? 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 Gender Identity Not on file Sexual Orientation Not on file documented as of this encounter Functional Status documented as of this encounter Plan of Treatment Not on file documented as of this encounter Visit Diagnoses Not on filedocumented in this encounter Eye Exam Visual Acuity Right eye Left eye Near sc LP Near cc 20/20-1 Tonometry (Tonopen, 1:14 PM) Right eye Left eye Pressure def 23 Unable right eye Pupils Dark Light Shape React APD Right eye Unable Left eye 4 2 Round Brisk Trace APD by reverse Visual Vivar Right eye Left eye Full Unable right eye Extraocular Movement Right eye Left eye Up gaze -- -- -- 0 0 0 Right/left gaze -- -- -- 0 -- 0 Down gaze -- -- -- 0 0 0 External Exam Right eye Left eye External Blood over eye lid Normal Slit Lamp Exam Right eye Left eye Lids/Lashes blood over lashes Normal Conjunctiva/Sclera 360 sub conj hemorrhage White and quiet Cornea vertical linear corneal lacerati on nasally Clear Anterior Chamber Shallow Deep and quiet Iris Round and reacti ve Lens Clear Vitreous Normal Fundus Exam Right eye Left eye Disc No view Normal, sharp ma rgins, no elevation, no pallor C/D Ratio 0.3 Macula Normal, flat, no heme Vessels Normal c/c Periphery Normal, no heme, attached 360 w/o RD/RT Care Teams Dialysis Equipment Technician Relationship Specialty Start Date End Date Aric Juan MD PCP - General Family Medicine 12/24/19 Aric Juan MD Consulting Physician Family Medicine 12/24/19 documented as of this encounter
--- OUTSIDE RECORDS SUMMARY | 2025-03-28 14:01 | XMS_ITS | Encounter Summary ---
Author Organization [facility] Care Team Providers Care Billet Examiner Name Role Phone Aric Juan MD Primary Care Provider [phone] Patric Espino MD Primary Care Provider Aric Juan MD Unavailable [phone] Aric Juan MD Primary Care Provider [phone] Aric Juan MD Primary Care Provider [phone] Encounter Details Date Type Department Care Team (Latest Contact Info) Description 01/05/2017 Orders Only [facility] ProviderPaulie MD [address] [place] [id number] Social History Tobacco Use Types Packs/Day Years Used Date Smoking Tobacco: Never Assessed Sex and Gender Information Value Date Recorded Sex Assigned at Not on file 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 Historical Provider Final Res ult documented in this encounter Visit Diagnoses Not on filedocumented in this encounter Care Teams Billet Examiner Relationship Specialty Start Date End Date Aric Juan MD PCP - General Family Medicine 02/27/18 11/28/19 Patric Espino MD [address] [place] [address] PCP - General 11/29/19 12/13/19 Aric Juan MD PCP - General Family Medicine 12/24/19 Aric Juan MD PCP - General 12/14/19 12/23/19 Aric Juan MD Consulting Physician Family Medicine 12/24/19 documented as of this encounter
[2025-03-28 14:31] LABS: Phenytoin Dilantin 14 ug/mL (10-20)
== END 2025-03-28 13:32 | disposition home or self-care (01) ==
PROVIDERS: Visit Provider Psychiatry & Neurology Neurology
DX: G40.909 Epilepsy, unspecified, not intractable, without status epilepticus (principal)
CPT/HCPCS: 36415; 80185